=== PATIENT | female | born 1940 | race Caucasian/White ===

== ENCOUNTER 2018-10-31 15:27 | Emergency (ER) | payer MEDICARE ==
--- NOTE | 2018-10-31 16:13 | ED ---
Headache HPI - General Chief Complaint: Headache Stated Complaint: Pain in head when bending over Time Seen by Provider: 10/31/18 15:43 Source: patient, RN notes reviewed Mode of arrival: ambulatory Limitations: no limitations - History of Present Illness Initial Comments: This a 78-year-old female presents emergency Department chief complaint pain and left-sided her head. Patient states that started yesterday from in the evening. Patient states is exacerbated when she coughs, leans to the left side. Patient that she gets shooting pain from top of her head towards her forehead behind her left eye. She denies any is other associated symptoms. She states she never had any like this in the past. Patient has no persistent headache she states s he only has his shooting type pain. Patient denies any upper similar weakness, paresthesias, chest pain, shortness breath, fever, chills, neck pain, neck stiffness. She did take some aspirin for the pain. Patient states that she normally exercises regular basis states that this wasn't ambulatory her from going to exercise class. Patient denies any trauma - Related Data Home Medications Medication Instructions Recorded Confirmed Biotin 5 mg PO DAILY 10/31/18 10/31/18 Pyridoxine HCl (Vitamin B6) 100 mg PO DAILY 10/31/18 10/31/18 [Vitamin B-6] Previous Rx's Medication Instructions Recorded Ibuprofen [Motrin] 600 mg PO Q8HR PRN #20 tab 10/31/18 carBAMazepine [TEGretol] 200 mg PO Q12H #14 tablet 10/31/18 Allergies Allergy/AdvReac Type Severity Reaction Status Date / Time No Known Allergies Allergy Verified 10/31/18 15:33 Review of Systems ROS Statement: Those systems with pertinent positive or pertinent negative responses have been documented in the HPI. ROS Other: All systems not noted in ROS Statement are negative. Past Medical History Past Medical History: No Reported History History of Any Multi-Drug Resistant Organisms: None Reported Past Surgical History: Hysterectomy, Tubal Ligation Additional Past Surgical History / Comment(s): bladder suspension Past Psychological History: No Psychological Hx Reported Smoking Status: Former smoker Past Alcohol Use History: None Reported Past Drug Use History: None Reported General Exam Limitations: no limitations General appearance: alert, in no apparent distress Head exam: Present: atraumatic, normocephalic, normal inspection Eye exam: Present: normal appearance, PERRL, EOMI. Absent: scleral icterus, conjunctival injection, periorbital swelling ENT exam: Present: normal exam, normal oropharynx, mucous membranes moist, TM's normal bilaterally Neck exam: Present: normal inspection, full ROM. Absent: tenderness, meningismus, lymphadenopathy Respiratory exam: Present: normal lung sounds bilaterally. Absent: respiratory distress, wheezes, rales, rhonchi, stridor Cardiovascular Exam: Present: regular rate, normal rhythm, normal heart sounds. Absent: systolic murmur, diastolic murmur, rubs, gallop, clicks Extremities exam: Present: normal inspection, full ROM, normal capillary refill. Absent: tenderness, pedal edema, joint swelling, calf tenderness Neurological exam: Present: alert, oriented X3, CN II-XII intact, reflexes normal, other (Finger to nose intact bilaterally without over shooting). Absent: motor sensory deficit Skin exam: Present: warm, dry, intact, normal color. Absent: rash Course Vital Signs 10/31/18 15:29 Temperature 97.7 F Pulse Rate 84 Respiratory 20 Rate Blood Pressure 158/71 O2 Sat by Pulse 95 Oximetry Medical Decision Making - Medical Decision Making 78-year-old female presented emergency department for shooting pain also had to her forehead. Patient's symptoms are consistent with occipital neuralgia. Patient will be given anti-inflammatories and visiting. Patient follow-up neurology for possible injection. Return parameters were discussed. Patient has no neurological deficits CT is unremarkable Disposition Clinical Impression: Occipital neuralgia of left side Disposition: HOME SELF-CARE Condition: Stable Instructions (If sedation given, give patient instructions): Acute Headache (ED) Additional Instructions: Please return to the Emergency Department if symptoms worsen or any other concerns. Prescriptions: Ibuprofen [Motrin] 600 mg PO Q8HR PRN #20 tab PRN Reason: Pain carBAMazepine [TEGretol] 200 mg PO Q12H #14 tablet Is patient prescribed a controlled substance at d/c from ED?: No Referrals: None,Stated [Primary Care Provider] - 1-2 days Jason Key DO [STAFF PHYSICIAN] - 1-2 days Time of Disposition: 16:36
--- NOTE | 2018-10-31 16:22 | CT ---
EXAMINATION TYPE: CT brain wo con DATE OF EXAM: 10/31/2018 COMPARISON: None HISTORY: Left sided headache. CT DLP: 1091.4 mGycm Automated exposure control for dose reduction was used. Head CT performed using departmental protocol . FINDINGS: There is no hemorrhage or hydrocephalus. The calvarium is intact. Orbits show symmetric appearance. C ortical atrophy is likely age-related. Cerebral vascular calcifications are present. Basal ganglia ca lcifications are present. Periventricular white matter shows some low-attenuation. IMPRESSION: NO ACUTE ABNORMALITY. AGE-RELATED CHANGES OF ATROPHY AND PROBABLE CHRONIC SMALL VESSEL ISCHEMIA. FOLL OW-UP INDICATED.
[2018-10-31 16:58] VITALS: BP 148/90; PULSE 68; RESP 16; TEMP 97.3
== END 2018-10-31 17:05 | disposition home or self-care (01) ==
LOC: EC 15:27
DX: M54.81 Occipital neuralgia (principal); R05 Cough; Z87.891 Personal history of nicotine dependence; Z79.899 Other long term (current) drug therapy
CPT/HCPCS: 70450; 99284

== ENCOUNTER 2019-02-19 15:01 | Emergency (ER) | payer MEDICARE ==
[2019-02-19 15:11] VITALS: BP 148/78; PULSE 72; RESP 18; TEMP 97.5
[2019-02-19] MEDS ORDERED: FAMOTIDINE 20 MG TAB PO STA (15:51)
[2019-02-19] MEDS ORDERED: diphenhydrAMINE 50 MG CAP PO STA (15:51)
[2019-02-19] MEDS ORDERED: DEXAMETHASONE 4 MG TAB PO STA (15:52)
--- NOTE | 2019-02-19 16:03 | ED ---
Allergic Reaction HPI - General Chief complaint: Allergic Reaction Stated complaint: Bee sting Source: patient Mode of arrival: ambulatory Limitations: no limitations - History of Present Illness Initial Comments: The patient is a 78-year-old female who presents emergency Department with reported right hand swelling. She states that she was working outside in the yard yesterday when she got stung by a bee. It was initially painful however overnight her right hand began to swell. States it is also extremely pruritic. Admits to warmth. No painful range of motion. Denies any pustular discharge from the sting site. No history of similar reaction in the past. Denies any shortness of breath or chest pain. Denies any hives. No history of ALLERGIES in the past. She did take a Benadryl did report that it helped her symptoms. She has not taken one since this morning. She denies any nausea or vomiting. Denies blunt trauma to the site. There are no other alleviating, precipitating or modifying factors - Related Data Home Medications Medication Instructions Recorded Confirmed Biotin 5 mg PO DAILY 10/31/18 02/19/19 Pyridoxine HCl (Vitamin B6) 100 mg PO DAILY 10/31/18 02/19/19 [Vitamin B-6] diphenhydrAMINE HCL [Benadryl] 25 mg PO DAILY PRN 02/19/19 02/19/19 Previous Rx's Medication Instructions Recorded Famotidine [Pepcid] 20 mg PO BID #10 tablet 02/19/19 Allergies Allergy/AdvReac Type Severity Reaction Status Date / Time No Known Allergies Allergy Verified 02/19/19 15:17 Review of Systems ROS Statement: Those systems with pertinent positive or pertinent negative responses have been documented in the HPI. ROS Other: All systems not noted in ROS Statement are negative. Past Medical History Past Medical History: No Reported History History of Any Multi-Drug Resistant Organisms: None Reported Past Surgical History: Hysterectomy, Tubal Ligation Additional Past Surgical History / Comment(s): bladder suspension Past Psychological History: No Psychological Hx Reported Smoking Status: Former smoker Past Alcohol Use History: None Reported Past Drug Use History: None Reported General Exam Limitations: no limitations Course Vital Signs 02/19/19 15:08 Temperature 97.5 F L Pulse Rate 72 Respiratory 18 Rate Blood Pressure 148/78 O2 Sat by Pulse 98 Oximetry Medical Decision Making - Medical Decision Making Upon arrival the patient is placed into room 9. A thorough history and physical exam was performed. Evaluation of the patient's right arm does feel diffuse swelling to her posterior hand which extends up to the wrist. I did recommend treatment with Pepcid, Benadryl and steroids. The patient is refusing treatment with prednisone. I did offer a dose of Decadron for which the patient did agree to. The patient was also given a dose of Benadryl and Pepcid in the ER. The patient does not demonstrate any airway compromise. Did recommend the patient follow up with her primary care physician within 2-4 days for reevaluation. She will take Benadryl at home as directed for the next 5 days. I also provided with a prescription for Pepcid. If she has any new or worsening symptoms she should return to the emergency room. Patient was in agreement with the treatment plan and she was discharged home in stable condition Disposition Clinical Impression: Allergic reaction Disposition: HOME SELF-CARE Condition: Stable Instructions (If sedation given, give patient instructions): Insect Bite or Sting (ED) Additional Instructions: Please follow up with your PCP in 2-4 days. Take the Benadryl as directed on the back of the box for the next 5 days. Take the Pepcid twice daily for 5 days. Return to the emergency department for any new or worsening symptoms Prescriptions: Famotidine [Pepcid] 20 mg PO BID #10 tablet Is patient prescribed a controlled substance at d/c from ED?: No Referrals: None,Stated [Primary Care Provider] - 1-2 days Time of Disposition: 16:03
== END 2019-02-19 16:18 | disposition home or self-care (01) ==
LOC: EC 15:01
DX: T63.441A Toxic effect of venom of bees, accidental (unintentional), initial encounter (principal); Z87.891 Personal history of nicotine dependence; Z53.20 Procedure and treatment not carried out because of patient's decision for unspecified reasons; Y92.096 Garden or yard of other non-institutional residence as the place of occurrence of the external cause
CPT/HCPCS: 99283; J8540